=== PATIENT | male | born 1975 | race African-American/Black ===

== ENCOUNTER 2023-02-03 09:43 | Emergency (ER) | payer OTHER, SELFPAY ==
--- NOTE | ~2023-02-03 | XR_ITS ---
EXAMINATION: XR mandible min 4V DATE: 02/03/2023 11:05 INDICATION: Nail gun fragment in the right side of the chin TECHNIQUE: 4 views of the mandible including left and right oblique, Munir and Tobin projections. COMPARISON: None. FINDINGS: 1.5 cm long, 3-4 mm diameter metallic foreign body in the soft tissues of the chin position slightly to the right of midline and at least 7 mm anterior to the mandible. The tip of the foreign bodies pos ition within 2 mm the skin surface. No fractures identified. Nasal septum is midline. Visualized port ion of the apices of lungs are clear. IMPRESSION: 1. Metallic foreign body in the soft tissues of the chin without acute osseous abnormality. Reviewed, dictated and finalized at location A.
--- NOTE | 2023-02-03 09:56 | ED.WOUNDLAC ---
HPI - Wound/Laceration General Chief Complaint: Wound/Laceration Stated Complaint: Wound Time Seen by Provider: 02/03/23 09:56 Source: patient Mode of arrival: ambulatory Limitations: no limitations History of Present Illness HPI narrative: Patient is a 47-year-old male presenting to the emergency department for evaluation of right chin irritation. Reportedly, 5 days ago, patient had a nail ricochet into his face at work and lodged into his right lower chin. Pt was seen a [facility] and had sutures placed overlying the laceration. Pt reports there was no imaging done or antibiotics given. Pt reports some small amount of irritation, redness, drainage and pain overlying the area. Discharge white in color. He denies history of skin infection in the past. He denies any facial numbness or facial asymmetry. Pt denies fever, chills, nausea or vomiting. Pt reports tetanus was not updated at previous facility. Related Data Allergies Allergy/AdvReac Type Severity Reaction Status Date / Time No Known Allergies Allergy Verified 02/03/23 10:34 Review of Systems Review of Systems: CONSTITUTIONAL: Denies fever CARDIOVASCULAR: Denies chest pain RESPIRATORY: Denies cough or dyspnea. GASTROINTESTINAL: Denies abdominal pain SKIN: Denies rash, reports area of redness overlying right chin/mandibular area MUSCULOSKELETAL: Denies back pain NEUROLOGIC: Denies headache PMFSH Past Medical History Medical History (Updated 02/03/23 @ 11:37 by Seema Long MD) No pertinent past medical history Surgical History Surgical History (Updated 02/03/23 @ 10:38 by Seema Long MD) No pertinent past surgical history Social History Social History (Updated 02/03/23 @ 10:38 by Seema Long MD) Smoking status: Never smoker Alcohol intake: never Substance use: never Living arrangements: with family Exam Narrative: GENERAL: Awake, alert, conversant HEAD: Normocephalic, atraumatic. EYES: PERRLA and EOMI. ENT: Nares clear, no rhinorrhea or epistaxis. Mucous membranes moist. Sutures present overlying right chin; some excoriation present. No purulence. There is a hardened foreign body that appears to be protuding from this area. NECK: Supple.No lymphadenopathy. CHEST: No respiratory distress, breathing even and non labored HEART: Regular rate, sinus rhythm ABDOMEN:Non distended, non tender EXTREMITIES: Normal range of motion. No edema. SKIN: Warm, dry, no rash. NEURO:No focal deficits. Alert and oriented x3 Course Vital Signs Vital signs: Vital Signs Temperature 36.2 C L 02/03/23 10:00 Pulse Rate 56 L 02/03/23 10:00 Respiratory Rate 16 02/03/23 10:00 Blood Pressure 131/89 02/03/23 10:00 Pulse Oximetry 100 02/03/23 10:00 Oxygen Delivery Room Air 02/03/23 10:00 Temperature 36.2 C L 02/03/23 10:00 Pulse Rate 56 L 02/03/23 10:00 Respiratory Rate 16 02/03/23 10:00 Blood Pressure 131/89 02/03/23 10:00 Pulse Oximetry 100 02/03/23 10:00 Oxygen Delivery Room Air 02/03/23 10:00 MDM - Wound/Laceration MDM Narrative Medical decision making narrative: Patient presented for evaluation of facial foreign body, irritation overlying sutures that were placed 5 days ago at outside facility for facial laceration. The time of assessment, ABCs are intact, vital signs are stable. On exam, does appear to be protruding metallic foreign body with sutures overlying and small amount of purulence present. Would presume that this is likely staphylococcal infection given purulence and location. Patient without systemic symptoms or significant amount of cellulitis. After discussion with facial plastic surgeon Dr. Pavon, we discussed the case and he advised me to remove the patient's sutures. Sutures were removed, at that point, metal foreign body was obvious and this was able to be removed without trauma to the surrounding fascial tissue. Only small amount of surrounding ce
[2023-02-03 10:00] VITALS: BP 131/89; PULSE 56; RESP 16; TEMP 36.2; O2SAT 100
[2023-02-03] MEDS: ceFAZolin 1 GM/NS 50 ML 1 GM/50 ML BAG IVPB (11:24)
[2023-02-03 11:28] LABS: Basophils Percent Auto 0.8 % (0.2-1.2); Eosinophils Absolute Auto 0.1 K/mm3 (0-0.3); Eosinophils Percent Auto 1.4 % (0-4.4); Hematocrit 44.3 % (42.0-52.0); Immature Granulocyte Absolute 0.01 K/mm3 (0.00-0.031); Immature Granulocyte Percent A 0.2 % (0-0.5); Lymphocytes Absolute Auto 1.84 K/mm3 (0.9-3.2); Mean Corpuscular HGB Conc 31.6 g/dl (32-36); Mean Corpuscular Hemoglobin 23.9 pg (26-34); Mean Corpuscular Volume 75.6 fl (80-100); Mean Platelet Volume 9.2 fl (7.4-10.4); Monocytes Absolute Auto 0.3 K/mm3 (0.1-0.6); Monocytes Percent Auto 6.5 % (2.6-8.5); Neutrophils Absolute Auto 2.8 K/mm3 (1.3-6.7); Neutrophils Percent Auto 55.1 % (45.5-73.1); Platelet Count Result 247 k/mm3 (150-375); Red Blood Count 5.86 M/mm3 (4.6-6.20); Red Cell Distribution Width 15.3 % (11.5-14.5); White Blood Count 5.1 K/mm3 (4.5-10.0)
[2023-02-03] MEDS: TETANUS,DIPHTHERIA,AC PERTUSSIS ADULT (0.5 ML) BOOSTRIX IM (11:38)
[2023-02-03 11:39] LABS: Anion Gap 5 mmol/L (8-16); Blood Urea Nitrogen 16 mg/dL (9-20); Calcium 8.7 mg/dL (8.4-10.2); Carbon Dioxide 28 mmol/L (22-30); Chloride 106 mmol/L (98-107); Estimated CRCL calculation 86 ml/min; Estimated Glomerular Filt Rate > 60; Glucose 89 mg/dL (65-110); Potassium 3.9 mmol/L (3.4-5.0); Sodium 139 mmol/L (137-145)
[2023-02-03] MEDS: IBUPROFEN 400 MG TABLET PO (11:55)
== END 2023-02-03 11:55 | disposition home or self-care (01) ==
PROVIDERS: Emergency Provider Emergency Medicine
DX: S01.82XA Laceration with foreign body of other part of head, initial encounter (principal); L03.211 Cellulitis of face; Z23 Encounter for immunization; W20.8XXA Other cause of strike by thrown, projected or falling object, initial encounter; W45.0XXA Nail entering through skin, initial encounter
CPT/HCPCS: 15853; 36415; 70110; 80048; 85025; 90471; 90715; 96365; 99284; A9270; J0690

== ENCOUNTER 2024-11-22 10:30 | Emergency (ER) | payer BC, SELFPAY ==
[2024-11-22 10:33] VITALS: BP 129/77; PULSE 65; RESP 14; TEMP 36.8; O2SAT 99
[2024-11-22 11:15] VITALS: BP 125/76; PULSE 69; RESP 16; O2SAT 98
[2024-11-22 11:22] LABS: Add Urine Microscopic? YES; Appearance Urine Clear (Clear); Bacteria Urine None Seen /hpf; Basophils Percent Auto 0.8 % (0.2-1.2); Bilirubin Urine Negative (Negative); Blood Urine Negative (Negative); Color Urine Yellow (Yellow); Eosinophils Absolute Auto 0.1 K/mm3 (0-0.3); Eosinophils Percent Auto 1.3 % (0-4.4); Glucose Urine UA Negative (Negative); Hemoglobin 16.4 g/dL (14.0-18.0); Immature Granulocyte Absolute 0.05 K/mm3 (0.00-0.031); Immature Granulocyte Percent A 1.3 % (0-0.5); Immature Platelet Fraction Pct 2.3 % (0.9-11.2); Ketones Urine Trace mg/dL (Negative); Leukocyte Esterase Ur Negative LEU/UL (Negative); Lymphocytes Absolute Auto 1.28 K/mm3 (0.9-3.2); Lymphocytes Percent Auto 32.1 % (18.3-44.2); Mean Corpuscular HGB Conc 32.8 g/dl (32-36); Mean Corpuscular Hemoglobin 27.2 pg (26-34); Mean Corpuscular Volume 83.1 fl (80-100); Mean Platelet Volume 10.1 fl (7.4-10.4); Monocytes Absolute Auto 0.4 K/mm3 (0.1-0.6); Monocytes Percent Auto 9.8 % (2.6-8.5); Neutrophils Absolute Auto 2.2 K/mm3 (1.3-6.7); Neutrophils Percent Auto 54.7 % (45.5-73.1); Nitrate Urine Negative (Negative); Non Pathogenic Casts 0-2; Platelet Count Result 185 k/mm3 (150-375); Protein Urine Trace mg/dL (Negative); RBC Urine 0-2 /hpf (0-2); Red Blood Count 6.02 M/mm3 (4.6-6.20); Red Cell Distribution Width 12.4 % (11.5-14.5); Specific Grav Ur 1.023 (1.001-1.035); Squamous Epithelial Cell Urine None Seen /hpf (Few); WBC Urine 0-5 /hpf (0-3)
[2024-11-22 11:39] LABS: Alanine Aminotransferase 21 U/L (6-50); Albumin Level 4.1 g/dL (3.5-5.1); Alkaline Phosphatase 57 U/L (38-126); Anion Gap 10 mmol/L (4-12); Aspartate Amino Transferase 25 U/L (17-59); Bilirubin,Total 0.7 mg/dL (0.2-1.3); Blood Urea Nitrogen 12 mg/dL (9-20); Calcium 8.3 mg/dL (8.4-10.2); Carbon Dioxide 27 mmol/L (22-30); Chloride 102 mmol/L (98-107); Estimated CRCL calculation 80 ml/min; Estimated Glomerular Filt Rate > 60; Glucose 83 mg/dL (65-110); Lipase 194 U/L (23-300); Potassium 4.1 mmol/L (3.4-5.0); Sodium 139 mmol/L (137-145)
--- OUTSIDE RECORDS SUMMARY | 2024-11-22 11:44 | XMS_ITS | Referral Summary ---
Author Organization [facility] Address [address] [place] [address] Care Team Providers Care Dump Worker Name Role Phone Miscellaneous, Not In File Primary Care Provider Unavailable Allergies No known active allergies Medications No known medications Social History Tobacco Use Types Packs/Day Years Used Date Smoking Tobacco: Never Assessed Personal Safety Answer Date Recorded Have you ever been in or are you currently in a harmful physical or emotional relationship or is someone making you feel afraid or unsafe? 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 Gender Identity Not on file Sexual Orientation Not on file Last Filed Vital Signs Vital Sign Reading Time Taken Comments Blood Pressure 161/91 02/03/2023 7:05 AM CDT Pulse 60 02/03/2023 7:05 AM CDT Temperature 36.1 C (96.9 F) 02/03/2023 7:05 AM CDT Respiratory Rate 17 02/03/2023 7:05 AM CDT Oxygen Saturation 100% 02/03/2023 7:05 AM CDT Inhaled Oxygen Concentration - - Weight 95.3 kg (210 lb 1.6 oz) 02/02/2023 11:30 PM CDT Height 188 cm (6' 2.02 ) 02/02/2023 11:30 PM CDT Body Mass Index 26.96 02/02/2023 11:30 PM CDT Plan of Treatment Not on file Insurance [employer] Care Teams Dump Worker Relationship Specialty Start Date End Date Miscellaneous, Not In File PCP - General 01/30/23
--- OUTSIDE RECORDS SUMMARY | 2024-11-22 11:44 | XMS_ITS | Clinical Summary ---
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 Gender Identity Not on file Sexual Orientation Not on file Obstetrics History Last Filed Vital Signs Vital Sign Reading [...] 02/02/2023 11:30 PM CDT Plan of Treatment Health Maintenance Due Date Last Done Comments Colon Cancer Screening-Colonoscopy 1975 Depression Screening 1975 Hepatitis C Screening 1975 Prostate Cancer Screening-PSA 1975 DTaP/Tdap/Td Vaccine (1 - Tdap) 1986 Hepatitis B Screening 1993 Regular Well Visit/Exam 18-64 1993 Influenza Vaccine (#1) 2024 Pneumococcal vaccine <65 Aged Out No longer eligible based on patient's age to complete this topic Insurance [employer] Care Teams Heel Blacker Relationship Specialty Start Date End Date Miscellaneous, Not In File PCP - General 01/30/23
[2024-11-22 11:45] VITALS: BP 124/80; PULSE 72; RESP 18; O2SAT 100
[2024-11-22 12:11] LABS: Atypical Lymphocytes Present; Platelet Estimate Adequate (Adequate); Schistocytes None Seen
[2024-11-22] MEDS: DICYCLOMINE HCL 10 MG CAPSULE 20 MG PO (12:17)
[2024-11-22] MEDS: FAMOTIDINE 20 MG TABLET PO (12:17)
--- NOTE | 2024-11-22 12:21 | ECG_ITS ---
Test Date: 2024-11-22 13:42:00 Measurements Intervals [place] Rate: 62 P: 57 MA: 174 QRS: 32 QRSD: 96 T: 15 QT: 350 QTc: 358 Interpretive Statements SINUS RHYTHM NORMAL ECG No previous ECG available for comparison Electronically Signed On 11-22-2024 14:08:43 CDT by Deejay Linton D.O.
[2024-11-22 12:30] VITALS: BP 120/68; PULSE 62; RESP 15; O2SAT 98
--- OUTSIDE RECORDS SUMMARY | 2024-11-22 13:18 | XMS_ITS | Referral Summary ---
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
--- OUTSIDE RECORDS SUMMARY | 2024-11-22 13:18 | XMS_ITS | Clinical Summary ---
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
[2024-11-22 13:30] VITALS: BP 120/80; PULSE 73; RESP 17; O2SAT 98
--- NOTE | 2024-11-22 17:58 | ED.ABDPAIN ---
HPI - Abdominal Pain General Chief Complaint: Abdominal Pain Stated Complaint: abd bloating, gas, belching Time Seen by Provider: 11/22/24 11:51 History of Present Illness HPI narrative: Patient has biscuits and gravy and afterwards felt quite bloated and gassy for the last day or 2. No chest pain. Related Data Allergies Allergy/AdvReac Type Severity Reaction Status Date / Time No Known Allergies Allergy Verified 11/22/24 11:01 Review of Systems Review of Systems: All systems reviewed & are unremarkable except as noted in HPI and below PMFSH Past Medical History Medical History (Updated 11/22/24 @ 13:25 by Sandrine Campbell MD) No pertinent past medical history Surgical History Surgical History (Updated 02/03/23 @ 10:38 by Seema Long MD) No pertinent past surgical history Social History Social History (Updated 02/03/23 @ 10:38 by Seema Long MD) Smoking status: Never smoker Alcohol intake: never Substance use: never Living arrangements: with family Exam Narrative: EXAMINATION OF ORGAN SYSTEMS/BODY AREAS: Constitutional: Vital signs per nursing GENERAL:[No acute distress, non-toxic appearing.] HEAD: Normal with no signs of head trauma. EYES: EOMI, conjunctiva normal ENT: Hearing grossly intact LUNGS: Nonlabored breathing. HEART: [Regular rate and rhythm] ABD: [Soft], [nontender to palpation] EXT: Normal range of motion SKIN: [No rashes or lesions.] NEURO: [Alert and oriented x 3. No gross focal sensory or strength deficits.] PSYCH: Normal affect Course Vital Signs Vital signs: Vital Signs Temperature 98.3 F 11/22/24 10:33 Pulse Rate 65 11/22/24 10:33 Respiratory Rate 14 11/22/24 10:33 Blood Pressure 129/77 11/22/24 10:33 Pulse Oximetry 99 11/22/24 10:33 Temperature 98.3 F 11/22/24 10:33 Pulse Rate 73 11/22/24 13:30 Respiratory Rate 17 11/22/24 13:30 Blood Pressure 120/80 11/22/24 13:30 Pulse Oximetry 98 11/22/24 13:30 MDM - Abdominal Pain MDM Narrative Medical decision making narrative: Patient presenting with abdominal bloating and gas after eating biscuits and gravy, he is well-appearing here, no distress, abdomen soft nontender, I did order some medications and on re-evaluation, he was able to eat without further issues. EKG obtained to rule out ACS. EKG - 12-Lead: Performed at 1342. Interpreted by me. [Sinus rhythm]. Rate 62. [Normal] axis. IL-interval [normal]. QRS duration [normal]. QTc [normal]. [No ST segment elevation or depression]. [T-wave normal]. Impression: No EKG evidence of acute ischemia or dysrhythmia. I suspect possibly GERD, instructed on dietary changes, at bedside, follow-up to GI/PCP provided, with prescriptions. They are agreeable to this plan with return precautions Lab Data 11/22/24 11:10 11/22/24 11:10 Labs: Lab Results 11/22/24 Range/Units 11:10 WBC 4.0 L (4.5-10.0) K/mm3 RBC 6.02 (4.6-6.20) M/mm3 Hgb 16.4 (14.0-18.0) g/dL Hct 50.0 (42.0-52.0) % MCV 83.1 (80-100) fl MCH 27.2 (26-34) pg MCHC 32.8 (32-36) g/dl RDW 12.4 (11.5-14.5) % Plt Count 185 (150-375) k/mm3 MPV 10.1 (7.4-10.4) fl Immature Gran % (Auto) 1.3 H (0-0.5) % Neut % (Auto) 54.7 (45.5-73.1) % Lymph % (Auto) 32.1 (18.3-44.2) % [place] % (Auto) 9.8 H (2.6-8.5) % Eos % (Auto) 1.3 (0-4.4) % Baso % (Auto) 0.8 (0.2-1.2) % Lymph # (Auto) 1.28 (0.9-3.2) K/mm3 [place] # (Auto) 0.4 (0.1-0.6) K/mm3 Eos # (Auto) 0.1 (0-0.3) K/mm3 Baso # (Auto) 0.0 (0.0-0.1) K/mm3 Abs Immat Gran (auto) 0.05 H (0.00-0.031) K/mm3 Absolute Neuts (auto) 2.2 (1.3-6.7) K/mm3 Absolute Nucleated RBC 0.000 (0.0-0.012) K/mm3 Band Neutrophils % Not Reportable Nucleated RBC % 0.0 (0.0-0.2) % Atypical Lymphocytes Present Platelet Estimate Adequate (Adequate) % Immature Plt Fraction 2.3 (0.9-11.2) % Schistocytes None seen Sodium 139 (137-145) mmol/L Potassium 4.1 (3.4-5.0) mmol/L Chloride 102 (98-107) mmol/L Carbon Dioxide 27 (22-30) mmol/L Anion Gap 10 (4-12) mmol/L BUN 12 (9-20) mg/dL Creatinine 1.12 (0.7-1.3) mg/dL Estim Creat Clear Calc 80 ml/min Estimated GFR > 60 (59 - ) Glucose 83 (65-110) mg/dL Calcium 8.3 L (8.4-10.2) mg/dL Total Bilirubin 0.7 (0.2-1.3) mg/dL AST 25 (17-59) U/L ALT 21 (6-50) U/L Alkaline Phosphatase 57 (38-126) U/L Total Protein 7.0 (6.3-8.2) g/dL Albumin 4.1 (3.5-5.1) g/dL Lipase 194 (23-300) U/L Urine Color Yellow (Yellow) Urine Appearance Clear (Clear) Urine pH 6.0 (5.0-9.0) Ur Specific [place] 1.023 (1.001-1.035) Urine Protein Trace (Negative) mg/dL Urine Glucose (UA) Negative (Negative) mg/dL Urine Ketones Trace H (Negative) mg/dL Ur Blood (Man) Negative (Negative) Urine Nitrate Negative (Negative) Urine Bilirubin Negative (Negative) Urine Urobilinogen 2.0 H (<2.0) mg/dL Leukocyte Esterase Rfl Negative (Negative) ASHLEE/UL Urine RBC 0-2 (0-2) /hpf Urine WBC 0-5 (0-3) /hpf Ur Squamous Epith Cells None seen (Few) /hpf Urine Bacteria None seen /hpf Urine Casts 0-2 Discharge Plan Discharge Clinical Impression: Abdominal bloating Patient Disposition: Home Condition: Stable Instructions: Diet for Stomach Ulcers and Gastritis (ED), Gas and Bloating (ED) Additional Instructions: Please follow up with your doctor or GI; you can always return for any further issues. Try to avoid any spicy, greasy/fried foods, alcohol, coffee. Patient Language: Turkmen Prescriptions: New famotidine 20 mg tablet 20 mg PO DAILY Qty: 30 0RF dicyclomine 20 mg tablet 20 mg PO TID PRN (Reason: abdominal pain) Qty: 30 0RF alum-mag hydroxide-simeth [Maalox Advanced] 200-200-20 mg/5 mL suspension 10 ml PO QID PRN (Reason: dyspepsia) Qty: 200 0RF Rx Instructions: administer between meals and at bedtime ondansetron 4 mg tablet,disintegrating 4 mg PO Q8H PRN (Reason: nausea and vomiting) Qty: 10 0RF No Action sulfamethoxazole-trimethoprim [Bactrim DS] 800-160 mg tablet 1 tablet PO Q12H 10 Days Qty: 20 0RF cephalexin 500 mg capsule 500 mg PO Q8H 10 Days Qty: 30 0RF ibuprofen 400 mg tablet 400 mg PO TID PRN (Reason: fever or pain) 10 Days Qty: 30 0RF Follow-up/Referrals: Jose Miguel Abraham MD [Physician] - 2 Days UNKNOWN,DOCTOR [Primary Care Provider] -
== END 2024-11-22 13:46 | disposition home or self-care (01) ==
PROVIDERS: Emergency Medicine; Emergency Provider Emergency Medicine
DX: R14.0 Abdominal distension (gaseous) (principal)
CPT/HCPCS: 36415; 80053; 81001; 83690; 85025; 85055; 93005; 99283; A9270